=== PATIENT | female | born 1965 | race Caucasian/White ===

== ENCOUNTER 2016-07-21 10:40 | Inpatient (IN) | payer OTHER ==
[2016-07-15 10:50] VITALS: BMI 35.0
--- NOTE | 2016-07-15 11:30 | PAT Medication Instructions ---
Service Date Jul 15, 2016. Current Home Medication List Albuterol Sulfate (Proair Respiclick), 2 PUFF INH Q4 PRN for SOB/Wheezing B Complex W/ C (Vitamin B Complex-C), 1 CAP PO QAM Betamethasone Dipropionate Aug (Diprolene Af), 1 APPLN TOP BID PRN for EZCEMA Cholecalciferol (Vitamin D3), 1 TAB PO QAM Diphenhydramine Hcl (Sleep) (Diphenhydramine Hcl), 25 TAB PO BID Fluticasone Propionate (Nasal) (Flonase Allergy Relief), 1 SPRAY KRYSTYNA BID Loratadine (Claritin), 10 MG PO QAM Lorazepam (Ativan), 0.5 MG PO TID PRN for Anxiety Mupirocin 2% (Bactroban 2%), 1 APPLN EXT UD PRN for PRN Naproxen (Naprosyn), 500 MG PO BID Nicotine (Nicoderm Cq 21MG Patch), 1 PATCH TD DAILY PRN for UD Oxybutynin Chloride (Oxybutynin Chloride ER), 10 MG PO QAM Pantoprazole (Protonix), 40 MG PO BID Polyethylene Glycol 3350 (Miralax), 17 GM PO HS Ranitidine (Zantac), 150 MG PO BID Senna (Senokot), 1 TAB PO UD PRN for PRN Tramadol (Ultram), 50 MG PO Q4H PRN for Pain Trazodone Hcl (Trazodone), 50-300 MG PO HS Venlafaxine Hcl (Venlafaxine Hcl Er), 1 TAB PO QAM Venlafaxine Hcl (Effexor), 37.5 MG PO QAM Medication Instructions For Your Scheduled Surgery - Check with surgeon for instructions: Naproxen (Naprosyn), 500 MG PO BID - Hold the following medications 24 hours prior to surgery: Mupirocin 2% (Bactroban 2%), 1 APPLN EXT UD PRN for PRN Betamethasone Dipropionate Aug (Diprolene Af), 1 APPLN TOP BID PRN for EZCEMA - Hold the following medications 48 hours prior to surgery: Oxybutynin Chloride (Oxybutynin Chloride ER), 10 MG PO QAM - Hold the following medications the morning of surgery: B Complex W/ C (Vitamin B Complex-C), 1 CAP PO QAM Senna (Senokot), 1 TAB PO UD PRN for PRN Ranitidine (Zantac), 150 MG PO BID Nicotine (Nicoderm Cq 21MG Patch), 1 PATCH TD DAILY PRN for UD Loratadine (Claritin), 10 MG PO QAM Diphenhydramine Hcl (Sleep) (Diphenhydramine Hcl), 25 TAB PO BID Cholecalciferol (Vitamin D3), 1 TAB PO QAM - Take the following medications the morning of surgery with a sip of water: Venlafaxine Hcl (Venlafaxine Hcl Er), 1 TAB PO QAM Venlafaxine Hcl (Effexor), 37.5 MG PO QAM Tramadol (Ultram), 50 MG PO Q4H PRN for Pain (okay to take up to 4 hours prior to surgery if needed) Pantoprazole (Protonix), 40 MG PO BID Lorazepam (Ativan), 0.5 MG PO TID PRN for Anxiety (if needed) Fluticasone Propionate (Nasal) (Flonase Allergy Relief), 1 SPRAY KRYSTYNA BID Albuterol Sulfate (Proair Respiclick), 2 PUFF INH Q4 PRN for SOB/Wheezing ( bring with you to hospital morning of surgery) - Take the following medications as scheduled the night before surgery: Trazodone Hcl (Trazodone), 50-300 MG PO HS Tramadol (Ultram), 50 MG PO Q4H PRN for Pain (if needed) Senna (Senokot), 1 TAB PO UD PRN for PRN Ranitidine (Zantac), 150 MG PO BID\ Polyethylene Glycol 3350 (Miralax), 17 GM PO HS Pantoprazole (Protonix), 40 MG PO BID Lorazepam (Ativan), 0.5 MG PO TID PRN for Anxiety (if needed) Fluticasone Propionate (Nasal) (Flonase Allergy Relief), 1 SPRAY KRYSTYNA BID Diphenhydramine Hcl (Sleep) (Diphenhydramine Hcl), 25 TAB PO BID Albuterol Sulfate (Proair Respiclick), 2 PUFF INH Q4 PRN for SOB/Wheezing If you have any questions please call us at [phone] (Jessica Juarez PA-C) or [phone] or [phone]
--- NOTE | 2016-07-15 12:16 | DIAGNOSTIC IMAGING REPORT ---
CHEST PREADMISSION(PA/LAT) CLINICAL HISTORY: Preoperative chest COMPARISON STUDY: No previous studies for comparison. FINDINGS: The heart is normal in size. There is mild interstitial prominence without evidence of overt failure. There is linear atelectasis in the right midlung zone. There is no lobar consolidation. There are no pleural effusions.[ IMPRESSION: 1. No evidence of focal pulmonary consolidation 2. Mild interstitial prominence without evidence of overt failure Electronically signed by: Andrea Parker M.D. 07/15/2016 12:14 PM Dictated Date/Time: 07/15/2016 12:14 PM
[2016-07-15 12:21] LABS: BASO % 0.3 %; BASO ABS # 0.02 K/uL (0-0.2); COMPLETE YES; EOS % 0.4 %; HEMATOCRIT 36.4 % (37-47); LYMPH % 26.9 %; MEAN CELL VOLUME 88.8 fL (80-100); MEAN CORPUSCULAR HEMOGLOBIN 31.2 pg (25-34); MEAN CORPUSCULAR HGB CONC 35.2 g/dl (32-36); MONO % 5.2 %; NEUT % 67.2 %; PLATELET COUNT 274 K/uL (130-400); WHITE BLOOD COUNT 6.68 K/uL (4.8-10.8)
[2016-07-15 12:31] LABS: URINE APPEARANCE CLEAR (CLEAR); URINE BILIRUBIN NEG (NEG); URINE COLOR DK YELLOW; URINE NITRITE POS (NEG); URINE SPECIFIC GRAVITY 1.017 (1.000-1.030); UROBILINOGEN NEG (NEG)
[2016-07-15 12:39] LABS: PROTHROMBIN TIME (PATIENT) 10.3 SECONDS (9.0-12.0)
[2016-07-15 12:40] LABS: MANUAL MICROSCOPIC REQUIRED? NO; REVIEW REQ? NO
[2016-07-15 13:03] LABS: BUN/CREATININE RATIO 15.8 (10-20); CALCIUM 8.8 mg/dl (8.5-10.1); POTASSIUM 4.2 mmol/L (3.5-5.1)
--- NOTE | 2016-07-19 16:37 | HISTORY & PHYSICAL EXAMINATION ---
DATE OF ADMISSION: 07/21/2016 OBJECTIVE CHIEF COMPLAINT: She presents with low back pain and lower extremity difficulty, weakness, loss of strength. HISTORY OF PRESENT ILLNESS: Marielle is a very pleasant 51-year-old female complains of low back pain radiating to the lower extremities. She has been diagnosed in the past with stenosis of the lumbar spine. She has difficulty ambulating any distance. She says she can walk for approximately 5 minutes and then she has to get off her feet because of significant pain, true weakness. She has been told in the past that she has had spinal stenosis, mostly at the L4-5 level with spondylolisthesis as well. PAST MEDICAL HISTORY: Positive for depression, stomach ulcers and protein S deficiency. PAST SURGICAL HISTORY: Includes a and tubal ligation. ALLERGIES: SHE HAS ALLERGIES TO PROVERA, LYRICA, AMOXICILLIN, GABAPENTIN. CURRENT MEDICATIONS: Include Flonase, lorazepam, naproxen, nicotine, oxybutynin, ProAir, ranitidine, Dulcolax, tramadol, trazadone, venlafaxine. FAMILY AND SOCIAL HISTORY: She is over 50 years of age. She is single. She does not ever drink alcohol. Mild tobacco use. Little activity. REVIEW OF SYSTEMS: MUSCULOSKELETAL: Positive for joint pain, weakness. CONSTITUTIONAL: Positive for fatigue, headache, weight gain. EARS, NOSE, THROAT: Positive for sore throat, sinus issues. CARDIOVASCULAR: Positive for swelling in hands and feet. RESPIRATORY: Positive for shortness of breath. GASTROINTESTINAL: Positive for changes in bowel habits. GENITOURINARY: Positive for some incontinence. PSYCHIATRIC: Positive for sleep problems, depression. INTEGUMENTARY: Positive for skin rashes. NEUROLOGIC: Positive for numbness, tingling in the lower extremities. HEMATOLOGY/LYMPHADENOPATHY: Positive for easiness to bruise. OBJECTIVELY: CONSTITUTION: She is 5 feet 2, 190 pounds. APPEARANCE: She is in distress here in the office. She uses a walker for support. Sitting she is pretty up comfortably. She gets uncomfortable in approximately 5-10 minute sitting. PSYCHIATRIC: She is alert and oriented x3. HEAD, EYES, EARS, NOSE, AND THROAT EXAMINATION: Normal. LYMPHATIC: She has no adenopathy. INTEGUMENTARY: Vascular structures are intact. No skin changes. No bruising. No redness, warmth or erythema. ABDOMEN: Soft, nontender. No organomegaly was noted. CARDIOVASCULAR: Brisk capillary refill in distal extremities. RESPIRATORY: Equal bilateral breath sounds. MUSCULOSKELETAL EXAMINATION: There are no signs of any upper motor neuron issues. She has weakness in dorsiflexion of quadriceps function of her lower extremities. She does have pain with straight leg raises bilaterally. Appropriate reflexes. DIAGNOSTIC TESTING: Ordered. We did review her MRI here in the office today. She does have pretty severe spinal stenosis L4-5 lumbar segments on the MRI. She demonstrates grade 1 spondylolisthesis at that level as well. There is also synovial cyst off the left facet joint at the L4-5 lumbar level. ASSESSMENT AND DIAGNOSIS: A 51-year-old female with stenosis at L5 including grade 1 spondylolisthesis and synovial cyst of the left facet joint. PLAN: At this time, we have offered her surgical intervention with the decompression and fusion of the L4-5 level. PLIF procedure to be exact. We did discuss the procedure with her, the benefits and the risks as well as expectations. The plan is she will be in the hospital for approximately 2 days. We did give her medication for pain here in the office as well as a back brace to take home. She was given instructions, precautions, and warnings here today. ADRIAN
[~2016-07-21] VITALS: Ht 157.5 cm; Wt 88.4 kg
[~2016-07-21 10:40] MED LIST: ALBU18002 INH; AUG0.05C12 TOP; B COCAP3 PO; BCTCR/30 EXT; CHOL20007 PO; CLINDAMYCIN 600 MG/54 ML D5W IV SCH; CLR10 PO; DIPH50TA10 PO; DTRSR/10 PO; EFF/375 PO; FLUT0.15 NAE; LACTATED RINGER'S 1000ML 1,000 ML IV SCH; LORA-741 PO; NAPR-1169 PO; NCDT21X TD; PANT40TA PO; POLY335019 PO; SENN-61 PO; TRAM-10 PO; TRAZ100T29 PO; VENL150T33 PO; ZNTT/150 PO
[2016-07-21 10:57] VITALS: BP 108/60; PULSE 75; TEMP 37.2; O2SAT 98; Ht 157.5 cm; Wt 88.4 kg
[2016-07-21] MEDS ORDERED: PROPOFOL IV EMULSION 10 MG/ML 20 ML VIAL IV ONE (13:28)
[2016-07-21] MEDS ORDERED: ROCURONIUM BROMIDE 10 MG/ML 5 ML VIAL ONE (13:28)
[2016-07-21] MEDS ORDERED: PHENYLEPHRINE HCL INJ 10 MG/ML VIAL ONE (13:28)
[2016-07-21] MEDS ORDERED: GLYCOPYRROLATE INJ 0.2 MG/ML VIAL ONE ×2 (13:28→16:28)
[2016-07-21] MEDS ORDERED: DEXAMETHASONE SOD INJ 4 MG/ML VIAL ONE ×3 (13:28→15:24)
[2016-07-21] MEDS ORDERED: NEOSTIGMINE METHYLSULFATE 5 MG/5 ML SYR ONE ×2 (13:28→16:28)
[2016-07-21] MEDS ORDERED: LIDOCAINE HCL 2% 2 ML VIAL (20MG/ML) ONE (13:28)
[2016-07-21] MEDS ORDERED: FENTANYL CITRATE INJ 50 MCG/1 ML 2 ML VIAL ONE ×2 (13:28)
[2016-07-21] MEDS ORDERED: EpHEDrine SULFATE INJ 50 MG/ML AMP ONE (13:28)
[2016-07-21] MEDS ORDERED: ONDANSETRON INJ 2 MG/ML 2 ML VIAL ONE (13:28)
[2016-07-21] MEDS ORDERED: SUCCINYLCHOLINE CHLORIDE 20 MG/ML 10 ML VIAL IV ONE (13:28)
[2016-07-21] MEDS ORDERED: MIDAZOLAM HCL 1 MG/ML 2ML VIAL ONE (13:28)
[2016-07-21] MEDS ORDERED: ATROPINE SULFATE 0.1 MG/ML 5ML SYR IV PRN (13:30)
[2016-07-21] MEDS ORDERED: PHENYLEPHRINE 100MCG/ML 5ML SYR IV PRN (13:30)
[2016-07-21] MEDS ORDERED: ONDANSETRON INJ 2 MG/ML 2 ML VIAL IV PRN ×2 (13:30→17:00)
[2016-07-21] MEDS ORDERED: EpHEDrine SULFATE INJ 50 MG/ML AMP IV PRN (13:30)
[2016-07-21] MEDS ORDERED: KETAMINE HCL INJ 50 MG/ML 10 ML VIAL ONE (14:09)
--- NOTE | 2016-07-21 14:24 | History & Physical Bridge Note ---
H&P Re-Evaluation Bridge Note: I have examined the patient, reviewed the History & Physical and in the interval since the performance of the History & Physical I have noted the following changes of clinical significance: No changes noted
[2016-07-21] MEDS ORDERED: HYDROmorphone INJ 2 MG/ML SYR/VIAL ONE (14:46)
--- NOTE | 2016-07-21 16:45 | DIAGNOSTIC IMAGING REPORT ---
LUMBAR SPINE, INTRAOPERATIVE FLUOROSCOPY HISTORY: L4-5 decompression and fusion. FLUOROSCOPY TIME: 10 seconds. FINDINGS: Intraoperative fluoroscopy was provided for the lumbar spine. A single fluoroscopic spot image submitted. There are pedicle screws at L4-L5. The hardware appears intact. IMPRESSION: Fluoroscopy provided for a L4-5 posterior decompression and fusion. Electronically signed by: Jeramie Sterling M.D. 07/21/2016 4:43 PM Dictated Date/Time: 07/21/2016 4:42 PM
[2016-07-21] MEDS ORDERED: SODIUM CHLORIDE 0.9% 1000ML 1,000 ML IV SCH ×2 (16:58→19:00)
--- NOTE | 2016-07-21 16:58 | [facility] Post Operative Brief Note ---
Immediate Operative Summary Operative Date Jul 21, 2016. Pre-Operative Diagnosis stenosis at L5 including grade 1 spondylolisthesis and synovial cyst of the left facet joint Post-Operative Diagnosis stenosis at L5 including grade 1 spondylolisthesis and synovial cyst of the left facet joint Procedure(s) Performed L4-L5 Decompression and Fusion Surgeon Dr. Jag Bustillos Pumping Supervisor Surgeon(s) Henry Johnson PA-C Estimated Blood Loss 300ml Specimens none per surgeon Complication(s) None Disposition Recovery Room / PACU
[2016-07-21] MEDS ORDERED: NALOXONE HCL 0.4 MG/1 ML VIAL/CARP IV PRN (17:00)
[2016-07-21] MEDS ORDERED: SENNA 8.6 MG TAB PO PRN (17:00)
[2016-07-21] MEDS ORDERED: LORAZEPAM INJ 1 MG in SYRINGE 0 ML IV PRN (17:00)
[2016-07-21] MEDS ORDERED: LORAZEPAM 0.5 MG TAB PO PRN (17:00)
[2016-07-21] MEDS ORDERED: MAGNESIUM HYDROXIDE SUSP 30 ML UDC PO PRN (17:00)
[2016-07-21] MEDS ORDERED: METOCLOPRAMIDE HCL INJ 5 MG/ML 2 ML VIAL IV PRN (17:00)
[2016-07-21] MEDS ORDERED: HYDROmorphone HCL 0.5MG/ML 50 ML CASSETTE IV PRN (17:00)
[2016-07-21] MEDS ORDERED: MUPIROCIN 2% OINT 22 GM TUBE EXT PRN (17:00)
[2016-07-21] MEDS ORDERED: ALBUTEROL HFA INHALER 18 GM INH PRN (17:00)
[2016-07-21] MEDS ORDERED: ACETAMINOPHEN 325 MG TAB PO PRN (17:00)
[2016-07-21] MEDS ORDERED: PROMETHAZINE HCL INJ 12.5 MG in SODIUM CHLORIDE 0.9% 50ML 50 ML IV PRN (17:00)
[2016-07-21] MEDS ORDERED: LORAZEPAM 1 MG TAB PO PRN (17:00)
[2016-07-21] MEDS: HYDROmorphone INJ 2 MG/ML SYR/VIAL IV PRN ×4 (17:05→17:20)
[2016-07-21] MEDS ORDERED: HYDROmorphone HCL 0.5MG/ML 50 ML CASSETTE ONE (17:16)
--- NOTE | 2016-07-21 17:49 | Anesthesiology Progress Note ---
Anesthesia Post Op Note Date & Time Jul 21, 2016 at 17:48 Vital Signs Vital Signs Past 12 Hours Date Time Temp Pulse Resp B/P Pulse Ox O2 Delivery O2 Flow Rate FiO2 07/21/16 17:40 91 19 98 07/21/16 17:40 36.5 91 19 07/21/16 17:38 119/77 07/21/16 17:35 90 16 91 07/21/16 17:35 91 16 07/21/16 17:33 120/82 07/21/16 17:30 98 14 97 07/21/16 17:30 98 14 07/21/16 17:28 122/82 07/21/16 17:25 96 16 07/21/16 17:25 95 16 98 07/21/16 17:24 121/78 07/21/16 17:20 99 21 100 07/21/16 17:20 99 21 07/21/16 17:18 119/75 07/21/16 17:15 97 16 100 07/21/16 17:15 97 16 07/21/16 17:14 118/82 07/21/16 17:10 112 23 07/21/16 17:10 112 23 100 07/21/16 17:08 132/86 07/21/16 17:05 105 20 07/21/16 17:05 105 20 100 07/21/16 17:04 123/76 07/21/16 17:01 127/83 07/21/16 17:00 37.1 109 20 127/83 100 Mask 10 07/21/16 10:57 37.2 75 18 108/60 98 Notes Mental Status: alert / awake / arousable, participated in evaluation Pt Amnestic to Procedure: Yes Nausea / Vomiting: adequately controlled Pain: adequately controlled Airway Patency, RR, SpO2: stable & adequate BP & HR: stable & adequate Hydration State: stable & adequate Anesthetic Complications: no major complications apparent
[2016-07-21 17:50] VITALS: BP 120/78; PULSE 95; TEMP 36.9; O2SAT 97
[2016-07-21 18:20] VITALS: BP 101/68; PULSE 93; TEMP 36.9; O2SAT 98
[2016-07-21 18:56] VITALS: BP 103/67; PULSE 97; TEMP 36.9; O2SAT 98
[2016-07-21 19:50] VITALS: BP 122/71; PULSE 98; TEMP 36.7; O2SAT 98
--- NOTE | 2016-07-21 20:41 | OPERATIVE REPORT ---
DATE OF OPERATION: 07/21/2016 PREOPERATIVE DIAGNOSES: Spinal stenosis, lumbar spine; spondylolisthesis, lumbar spine at L4-L5; large synovial cyst L4-L5 and instability. POSTOPERATIVE DIAGNOSIS: Same. PROCEDURE: 1. Decompression laminectomy of L4 and L5, 2-level nerve root decompression of lumbar spine. 2. Pedicle screw instrumentation L4-L5 lumbar spine. 3. Posterior lumbar interbody fusion L4-L5. SURGEON: Dr. Bustillos and Henry Johnson PA-C. COMPLICATIONS: Zero. BLOOD LOSS: 300. ANESTHESIA: General. COUNTS: Sponge and needle count correct at the close of the procedure. IMPLANTS USED: By the [employer]. DESCRIPTION OF PROCEDURE: The patient was taken the operating room, a general intubated, anesthetic provided to the patient, placed prone, scrubbed, prepped, draped sterile. We made a skin incision from 4-5 lumbar spine dissecting the soft tissue in the same plane same vicinity, took the soft tissue dissection down out over the facet joints, transverse processes. We used a C-arm image to verify the level at L4-L5. We then did a formal midline decompression of the neural elements at L4-L5 foraminotomies, partial facetectomy, we concentrated on both sides, we got a large synovial cyst on the left hand side on the 5 nerve root consistent with her pain and her MRI findings. We clearly had and every nerve root decompressed. Because of the decompression, the facets were basically incompetent. The facet joints were not holing spine emanate great degree. We instrumented the spine. Sensing the instability, we safely got pedicle screws in to 4, safely at 5, bilaterally stabilizing the spine. I then did a formal diskectomy. I felt that the interbody aspect of the fusion would give her some good anterior column and middle column supports. We went along with an interbody fusion, doing a complete diskectomy or 75% of the disk removed. We then reamed up to a size 13, 13 mm in height, 10 mm in width, 26 mm in length for an interbody device placed at the L4-L5 interval. The buddhism was near anatomic. We then put in the rods, locked these down as well, tightened them firmly. We then irrigated with about 600 mL of fluid and then we bone grafted out over the transverse processes at 4 and 5 of lumbar spine, initiating the spinal fusion. We then once again irrigated, closed in layers with #1 Vicryl suture, 2-0 and staple gun on the skin. Sterile dressing applied, vancomycin powder used and employed prior to closure. Hemovac drain used deep to the wound as well. The patient then returned to PACU in improved stable condition. No apparent complications. I attest to the content of the Intraoperative Record and any orders documented therein. Any exceptio ns are noted below.
[2016-07-21 20:46] VITALS: BP 126/85; PULSE 93; TEMP 36.8; O2SAT 98
[2016-07-21] MEDS: KETOROLAC TROMETHAMINE 30 MG/ML VIAL IV. SCH (20:50)
[2016-07-21] MEDS: DEXAMETHASONE INJ 10 MG in SYRINGE 0 ML IV SCH (20:50)
[2016-07-21] MEDS: RANITIDINE HCL 150 MG TAB PO SCH (20:52)
[2016-07-21] MEDS: CIPROFLOXACIN 500 MG TAB PO SCH (20:52)
[2016-07-21] MEDS: POLYETHYLENE (MIRALAX) 17 GM PACK PO SCH (20:52)
[2016-07-21] MEDS: PANTOprazole SOD 40 MG TAB PO SCH (20:54)
[2016-07-21] MEDS: CLINDAMYCIN IV 600 MG in DEXTROSE 5% ADD-VANTAGE 50ML 50 ML IV SCH (22:19)
[2016-07-22 00:01] VITALS: BP 113/73; PULSE 76; TEMP 36.7; O2SAT 94
[2016-07-22] MEDS: KETOROLAC TROMETHAMINE 30 MG/ML VIAL IV. SCH ×4 (02:01→20:12)
[2016-07-22 04:20] VITALS: BP 110/68; PULSE 78; TEMP 36.5; O2SAT 95
[2016-07-22] MEDS: DEXAMETHASONE INJ 10 MG in SYRINGE 0 ML IV SCH ×4 (04:21→20:12)
[2016-07-22] MEDS: CLINDAMYCIN IV 600 MG in DEXTROSE 5% ADD-VANTAGE 50ML 50 ML IV SCH (05:34)
[2016-07-22] MEDS ORDERED: DC PCA PRN (06:00)
[2016-07-22] MEDS ORDERED: BISACODYL 10 MG SUPP PR PRN (06:00)
[2016-07-22] MEDS ORDERED: BISACODYL 5 MG TABEC PO PRN (06:00)
[2016-07-22] MEDS ORDERED: NURSING VERBAL MED ORDER ONE ×2 (06:00→19:30)
[2016-07-22 07:04] VITALS: BP 104/69; PULSE 75; TEMP 36.7; O2SAT 96
[2016-07-22] MEDS ORDERED: INFLUENZA VIRUS QUAD VACCINE 0.5 ML SYR IM. ONE (08:00)
[2016-07-22] MEDS ORDERED: INFLUENZA ADMINISTRATION CHARGE ONE (08:00)
[2016-07-22] MEDS ORDERED: OXYCODONE/ACETAMINOPHEN 5-325 TAB PO PRN (08:00)
[2016-07-22] MEDS ORDERED: HYDROmorphone INJ 1 MG/ML SYR IV PRN ×2 (08:00)
--- NOTE | 2016-07-22 08:20 | Anesthesiology Progress Note ---
Anesthesia Post Op Note Date & Time Jul 22, 2016 at 08:19 Vital Signs Pain Intensity: 7.0 Vital Signs Past 12 Hours Date Time Temp Pulse Resp B/P Pulse Ox O2 Delivery O2 Flow Rate FiO2 07/22/16 07:04 36.7 75 16 104/69 96 Room Air 07/22/16 04:20 36.5 78 18 110/68 95 Room Air 07/22/16 00:01 36.7 76 14 113/73 94 Room Air 07/21/16 23:55 Room Air 07/21/16 20:46 36.8 93 16 126/85 98 Nasal Cannula 2.0 Notes Mental Status: alert / awake / arousable, participated in evaluation Pt Amnestic to Procedure: Yes Nausea / Vomiting: adequately controlled Pain: adequately controlled Airway Patency, RR, SpO2: stable & adequate BP & HR: stable & adequate Hydration State: stable & adequate Anesthetic Complications: no major complications apparent
[2016-07-22] MEDS: CIPROFLOXACIN 500 MG TAB PO SCH ×2 (08:32→21:29)
[2016-07-22] MEDS: VENLAFAXINE HCL XR 150 MG CAPXR PO SCH (08:33)
[2016-07-22] MEDS: LORATADINE 10 MG TAB PO SCH (08:34)
[2016-07-22] MEDS: VENLAFAXINE HCL 37.5 MG TAB PO SCH (08:34)
[2016-07-22] MEDS: POLYETHYLENE (MIRALAX) 17 GM PACK PO SCH ×2 (08:35→21:28)
[2016-07-22] MEDS: PANTOprazole SOD 40 MG TAB PO SCH ×2 (08:35→21:27)
[2016-07-22] MEDS: OXYCODONE/ACETAMINOPHEN 5-325 TAB PO PRN ×4 (08:36→23:47)
[2016-07-22] MEDS: CHOLECALCIFEROL 1000 INTER.UNIT TAB PO SCH (08:37)
[2016-07-22] MEDS: RANITIDINE HCL 150 MG TAB PO SCH ×2 (08:37→21:28)
[2016-07-22] MEDS ORDERED: NICOTINE 21 MG/24 HR TDSY TD PRN (09:00)
[2016-07-22 11:10] VITALS: BP 109/71; PULSE 80; TEMP 36.9; O2SAT 97
[2016-07-22 15:58] VITALS: BP 116/74; PULSE 79; TEMP 36.5; O2SAT 93
[2016-07-22] MEDS ORDERED: TRAZODONE HCL 50 MG TAB PO SCH (21:00)
[2016-07-22 22:58] VITALS: BP 138/75; PULSE 83; TEMP 36.5; O2SAT 96
[2016-07-23] MEDS: DEXAMETHASONE INJ 10 MG in SYRINGE 0 ML IV SCH (04:08)
[2016-07-23 07:47] VITALS: BP 105/65; PULSE 84; TEMP 36.5; O2SAT 94
[2016-07-23] MEDS: POLYETHYLENE (MIRALAX) 17 GM PACK PO SCH (09:00)
[2016-07-23] MEDS: VENLAFAXINE HCL XR 150 MG CAPXR PO SCH (09:41)
[2016-07-23] MEDS: CIPROFLOXACIN 500 MG TAB PO SCH (09:42)
[2016-07-23] MEDS: LORATADINE 10 MG TAB PO SCH (09:42)
[2016-07-23] MEDS: PANTOprazole SOD 40 MG TAB PO SCH (09:43)
[2016-07-23] MEDS: RANITIDINE HCL 150 MG TAB PO SCH (09:43)
[2016-07-23] MEDS: VENLAFAXINE HCL 37.5 MG TAB PO SCH (09:43)
[2016-07-23] MEDS: CHOLECALCIFEROL 1000 INTER.UNIT TAB PO SCH (09:44)
--- NOTE | 2016-07-23 09:51 | Discharge Instructions ---
Discharge Instructions Admission Reason for Admission: Lumbar Spinal Stenosis Discharge Discharge Diagnosis / Problem: spinal surgery Discharge Goals Goal(s): Improve function Activity Recommendations Activity Limitations: as noted below Lifting Limitations: no more than 5 pounds, gradually increase as tolerated Exercise/Sports Limitations: until after follow-up appointment May Resume Sexual Activity: after follow-up appointment Shower/Bathe: may shower/bathe in 3 days, keep incision dry Driving or Machine Use: home, rest, recover . Current Hospital Diet Patient's current hospital diet: Regular Diet Discharge Diet Recommended Diet: Regular Diet Fluid Restriction: None Procedures Procedures Performed: L4-L5 Decompression and Fusion Pending Studies Studies pending at discharge: no Medical Emergencies . Who to Call and When: Medical Emergencies: If at any time you feel your situation is an emergency, please call 911 immediately. . Non-Emergent Contact Non-Emergency issues call your: Surgeon Call Non-Emergent contact if: your pain is concerning you . "Provider Documentation" section prepared by Jag Bustillos. VTE Core Measure Inpt VTE Proph given/why not?: Treatment not indicated
[2016-07-23] MEDS: OXYCODONE/ACETAMINOPHEN 5-325 TAB PO PRN ×2 (09:54→15:26)
[2016-07-23 13:09] VITALS: BP 105/65; PULSE 84; TEMP 36.5; O2SAT 94
--- NOTE | 2016-08-02 10:51 | DISCHARGE SUMMARY ---
The patient was taken to surgery, successful lumbar spine surgery. Out of bed to chair day 1 and ambulatory. Discharged home the 14, day 2 improved stable condition. Her vital signs stable. She was alert, oriented and no chest pain, shortness of breath. She will be discharged home in improved stable condition. Vital signs were stable. She has a follow-up appointment in 10 days. She has a brace for support, a walker with wheels as well. Medication provided. Instruction precautions provided to her in the office setting and in the hospital setting.
== END 2016-07-23 16:00 | disposition home or self-care (01) | DRG 460 ==
LOC: ENRESERVTM → ENRESERVDT → C.ACU 10:40 → C.3E 17:04
PROVIDERS: ADMIT Orthopaedic Surgery Orthopaedic Surgery of the Spine; ATTEND Orthopaedic Surgery Orthopaedic Surgery of the Spine
PROC: 0ST40ZZ Resection of Lumbosacral Disc, Open Approach (ICD-10-PCS; principal; 2016-07-21 12:30)
PROC: 0SG10J1 Fusion of 2 or more Lumbar Vertebral Joints with Synthetic Substitute, Posterior Approach, Posterior Column, Open Approach (ICD-10-PCS; principal; 2016-07-21 12:30)
PROC: 0SG10AJ Fusion of 2 or more Lumbar Vertebral Joints with Interbody Fusion Device, Posterior Approach, Anterior Column, Open Approach (ICD-10-PCS; principal; 2016-07-21 12:30)
DX: M43.16 Spondylolisthesis, lumbar region (principal); D68.59 Other primary thrombophilia; M48.06 Spinal stenosis, lumbar region; M71.38 Other bursal cyst, other site; F32.9 Major depressive disorder, single episode, unspecified; F17.200 Nicotine dependence, unspecified, uncomplicated; Z88.0 Allergy status to penicillin